=== PATIENT | female | born 1995 | race Caucasian/White ===

== ENCOUNTER 2021-08-22 08:23 | Outpatient (CLI) | payer OTHER, MEDICAID, SELFPAY ==
--- NOTE | 2021-08-22 08:35 | US_ITS ---
WS: [id number] OBSTETRICAL ULTRASOUND COMPLETE HISTORY: ANATOMY COMPARISON: 06/21/2021 Single intrauterine gestation in variable presentation. Cervix is Closed and normal length. Cervical length is 4.9 cm. Normal amount of amniotic fluid surrounds the fetus. Placenta: Anterior, no previa or abruption. Placenta grade 0 Heart: 153 BPM. Four chambers are identified. RIGHT and LEFT outflow tracts are unremarkable. Anatomy: Intracranial structures and spine are normal. kidneys, stomach and urinary bladd er are unremarkable. Abdominal wall, three-vessel cord and cord insertion site are normal. 4 extremities are present. profile: Limited. Gender: Not imaged. measurements: BPD = 4.8 cm = 20w4d HC = 18.7 cm = 21w0d AC = 15.6 cm = 20w5d FL = 3.5 cm = 21w0d EFW: 382 g. Biometry is internally concordant. AGA by ultrasound: 20w6d ZORAN by ultrasound: 01/03/2022 US/US OB >= 14 weeks fetus [id number] IMPRESSION: 1. Single intrauterine gestation of 20w6d with an ZORAN of 01/03/2022. Appropria te growth since the prior ultrasound. 2. anatomy survey demonstrates no abnormality. Limited evaluation of the profile.
== END 2021-08-22 08:24 | disposition home or self-care (01) ==
LOC: RAD 08:30
PROVIDERS: PCP Family Medicine; Visit Provider Family Medicine
DX: Z34.82 Encounter for supervision of other normal pregnancy, second trimester; Z3A.20 20 weeks gestation of pregnancy
CPT/HCPCS: 76805

== ENCOUNTER 2021-12-12 06:06 | Outpatient (CLI) | payer OTHER, MEDICAID, SELFPAY ==
--- NOTE | 2021-12-12 06:13 | US_ITS ---
WS: [id number] BIOPHYSICAL PROFILE AND LIMITED OB. HISTORY: GESTATIONAL DIABETES COMPARISON: 08/22/2021, 06/21/2021 Presentation: Vertex. Cervix: Closed. The entire length of the service is obscured by the head. Placenta: Anterior, no previa or abruption. Grade: 1 HEART: FHR of 153BPM. measurements: BPD = 9.7 cm = 39w5d HC = 31.0 cm = 34w5d AC = 33.3 cm = 37w1d FL = 7.3 cm = 37w3d TK: 9.3 cm, between the fifth and 50th percentiles. Largest vertical pocket 5.2 cm. EFW: 3160g; 76 %. AGA by ultrasound: 37w2d ZORAN by ultrasound: 12/31/2021 Estimated date of delivery is concordant with the first trimester ultrasound. Today's biometry measur ements are not concordant. The BPD is measuring 5 weeks larger than the head circumference and 2 week s greater than the abdominal circumference and femur length. Measurements are very difficult to accur ately obtain at this late gestational age. Biophysical profile: Parameters are as follows: Breathin Movement: 2 Tone: 2 Fluid volume: 2 US/US OB lmt w/ BPP wo NST IMPRESSION: 1. Biophysical profile score: 8/8. 2. Single intrauterine gestation of 37w2d and 12/31/2021. Appropriate growth si nce the first trimester ultrasound. 3. measurements are probably inaccurate due to late gestational age and d ifficulty obtaining measurements at locations. The BPD is measuring larger than the remaining measurements. 4. Normal amniotic fluid index.
[2021-12-12 07:31] VITALS: BMI 37.3
== END 2021-12-12 06:07 | disposition home or self-care (01) ==
LOC: RAD 06:08
PROVIDERS: PCP Family Medicine; Visit Provider Family Medicine
DX: O24.419 Gestational diabetes mellitus in pregnancy, unspecified control (principal); Z3A.00 Weeks of gestation of pregnancy not specified
CPT/HCPCS: 59025; 76815; 76819

== ENCOUNTER 2021-12-12 07:10 | Outpatient (CLI) | payer OTHER, MEDICAID, SELFPAY ==
[2021-12-12 07:28] VITALS: BP 122/63; PULSE 79
[2021-12-12 07:45] VITALS: BP 119/60; PULSE 79
[2021-12-12 07:58] VITALS: BP 119/61; PULSE 91
[2021-12-12 08:00] VITALS: BP 119/60; PULSE 79; RESP 18
[2021-12-12 08:22] VITALS: BMI 37.3
== END 2021-12-12 08:05 | disposition home or self-care (01) ==
LOC: OPOB 07:12 → OBGYN 07:12
PROVIDERS: PCP Family Medicine; Visit Provider Family Medicine
DX: O24.419 Gestational diabetes mellitus in pregnancy, unspecified control (principal); Z3A.00 Weeks of gestation of pregnancy not specified
CPT/HCPCS: 59025

== ENCOUNTER 2021-12-19 08:25 | Outpatient (CLI) | payer OTHER, MEDICAID, SELFPAY ==
--- NOTE | 2021-12-19 08:32 | US_ITS ---
WS: [id number] ULTRASOUND OB LIMITED TECHNIQUE: Limited ultrasound examination of the fetus. CLINICAL INFORMATION: GESTATIONAL DIABETES COMPARISON: December 12, 2021 FINDINGS: Cervix measures 4.2 cm Single interuterine gestation. Placental location is anterior. Placenta grade: 1 heart rate 144 BPM. Normal TK 12.3 cm Biophysical profile 8 out of 8. breathin movement: 2 tone: 2 Amniotic fluid: 2 US/US OB F/U w BPP wo NST IMPRESSION: 1. Normal biophysical profile 8 out of 8 2. Normal TK for gestational age just below the median.
== END 2021-12-19 08:26 | disposition home or self-care (01) ==
PROVIDERS: PCP Family Medicine; Visit Provider Family Medicine
DX: O24.419 Gestational diabetes mellitus in pregnancy, unspecified control (principal); Z3A.00 Weeks of gestation of pregnancy not specified
CPT/HCPCS: 76816; 76819

== ENCOUNTER 2021-12-19 09:10 | Outpatient (CLI) | payer OTHER, MEDICAID, SELFPAY ==
[2021-12-19 09:17] VITALS: BP 132/79; PULSE 100; TEMP 36.2
[2021-12-19 09:22] VITALS: RESP 17; TEMP 36.2; BMI 37.0
[2021-12-19 09:38] VITALS: BP 123/83; PULSE 94
[2021-12-19 09:48] VITALS: BP 123/83; PULSE 94
== END 2021-12-19 09:48 | disposition home or self-care (01) ==
LOC: OPOB 09:11 → OBGYN 09:12
PROVIDERS: PCP Family Medicine; Visit Provider Family Medicine
DX: O24.419 Gestational diabetes mellitus in pregnancy, unspecified control (principal); Z3A.00 Weeks of gestation of pregnancy not specified
CPT/HCPCS: 59025; 99211

== ENCOUNTER 2021-12-26 08:27 | Outpatient (CLI) | payer OTHER, MEDICAID, SELFPAY ==
--- NOTE | 2021-12-26 08:54 | US_ITS ---
WS: [id number] BIOPHYSICAL PROFILE AMNIOTIC FLUID HISTORY: GESTATIONAL DIABETES COMPARISON: 12/19/2021 Cardiac activity: 153 bpm. Cervix: closed. 3.1 cm. Placenta: Anterior, no previa or abruption. Placenta grade: 2 Parameters are as follows: Breathin Movement: 2 Tone: 0 Fluid volume: 2 Amniotic fluid index: 8.3 cm. Largest vertical pocket 3.0 cm. US/US OB F/U w BPP wo NST IMPRESSION: 1. Biophysical profile score: 6/8. Although the baby was active during this exa mination tone was not evident. 2. Low normal amniotic fluid index. The internal fluid index has decreased sinc e the prior examination from 12.4 cm to 8.3 cm. Visually the amniotic fluid vol ume appears decreased also.
== END 2021-12-26 08:28 | disposition home or self-care (01) ==
LOC: RAD 08:31
PROVIDERS: PCP Family Medicine; Visit Provider Family Medicine
DX: O24.419 Gestational diabetes mellitus in pregnancy, unspecified control (principal); Z3A.00 Weeks of gestation of pregnancy not specified
CPT/HCPCS: 76816; 76819

== ENCOUNTER 2021-12-26 10:00 | Outpatient (CLI) | payer OTHER, MEDICAID, SELFPAY ==
[2021-12-26 10:12] VITALS: TEMP 36.5
[2021-12-26 10:13] VITALS: BP 124/90; PULSE 86
[2021-12-26 10:29] VITALS: BP 143/89; PULSE 89; RESP 18; BMI 37.9
[2021-12-26 10:43] VITALS: BP 138/82; PULSE 79
[2021-12-26 10:58] VITALS: BP 154/97; PULSE 82
[2021-12-26 11:14] VITALS: BP 145/86; PULSE 80
== END 2021-12-26 11:20 | disposition home or self-care (01) ==
LOC: OPOB 10:04 → OBGYN 10:04
PROVIDERS: PCP Family Medicine; Visit Provider Family Medicine
DX: O24.419 Gestational diabetes mellitus in pregnancy, unspecified control (principal); Z3A.00 Weeks of gestation of pregnancy not specified
CPT/HCPCS: 59025

== ENCOUNTER 2021-12-27 08:50 | Outpatient (CLI) | payer OTHER, MEDICAID, SELFPAY ==
[2021-12-27 09:05] VITALS: BP 139/86; PULSE 94; TEMP 36.7
[2021-12-27 09:55] VITALS: BMI 38.1
[2021-12-27 10:02] VITALS: BP 133/84; PULSE 91
--- NOTE | 2021-12-27 10:06 | US_ITS ---
WS: [id number] ULTRASOUND OB LIMITED TECHNIQUE: Limited ultrasound examination of the fetus. CLINICAL INFORMATION: GDM COMPARISON: December 26, 2021 FINDINGS: Closed cervix measures 5.2 cm Single interuterine gestation. Placental location is anterior. Placenta grade: 2 heart rate 144 BPM. TK measures 19.7 cm greater than the median and less than the 95th percentile for gestational age. A mniotic fluid volume was probably underestimated on December 26, 2021. Amniotic fluid pockets are better v isualized today due to positioning. Biophysical profile 8 out of 8. breathin movement: 2 tone: 2 Amniotic fluid: 2 US/US OB BPP wo NST [id number] IMPRESSION: 1. NORMAL BIOPHYSICAL PROFILE 8 OUT OF 8 TODAY. 2. TK 19.7 CM TODAY NORMAL FOR GESTATIONAL AGE
== END 2021-12-27 11:38 | disposition home or self-care (01) ==
LOC: OPOB 08:54 → OBGYN 08:56
PROVIDERS: PCP Family Medicine; Visit Provider Family Medicine
DX: O24.419 Gestational diabetes mellitus in pregnancy, unspecified control (principal); Z3A.00 Weeks of gestation of pregnancy not specified
CPT/HCPCS: 76819

== ENCOUNTER 2021-12-29 05:05 | Inpatient (IN) | payer OTHER, MEDICAID, SELFPAY ==
[2021-12-29] VITALS (32 sets, daily range): BP systolic 110–151; BP diastolic 56–88; PULSE 65–92; RESP 14–18; TEMP 36.3–37.2; O2SAT 98–100; BMI 37.9
[2021-12-29] MEDS: lactated ringers 1,000 ML 999 ML IV (06:13)
[2021-12-29 06:40] LABS: Glucose Point of Care 97 mg/dL (70-110)
--- NOTE | 2021-12-29 06:40 | PM.HP ---
Providers/Chief Complaint Admitting Physician: Juvenal Yepez MD Primary Care Provider: Juvenal Yepez MD Chief Complaint: delivery and tubal History of Present Illness Nixon Gilmore is a 26 year old G3, P2 at 38.5 weeks gestation by LMP consistent with 11-week ultrasound. Her is complicated by history of heavy bleeding with periods requiring transfusion, borderline hypertension, history of section x2, gestational diabetes diet-controlled, borderline biophysical profile. The patient presents to labor and delivery for a scheduled repeat low-transverse section with bilateral tubal ligation. The initial plan was to have a section next week, however she had a biophysical profile of 6 out of 8 on Saturday with an TK of 8. She had a more reassuring BPP on Saturday, however her report is that the tech had to highly stimulate the infant to get it to move at all. Her blood pressure has also been starting to elevate in the upper 130s over 80s to 140s over 90s. With all of these findings and gestational diabetes and being very close to term, it was felt best to proceed with a repeat low-transverse section today to decrease risk for an adverse event. The patient feels well today. She denies any chest pains, shortness of breath, nausea, vomiting, fever, diarrhea, constipation, dysuria, leakage of fluid, vaginal bleeding. Medications/Allergies Home Medications Medication Instructions Recorded Confirmed Last Taken Type 1 12/27/21 Unknown History Allergies Allergy/AdvReac Type Severity Reaction Status Date / Time clindamycin Allergy Severe ALGY-Hives Verified 12/27/21 10:18 PFSH Acute PFSH: Medical History (Updated 12/29/21 @ 06:47 by Juvenal Yepez MD) History of blood transfusion Due to heavy periods at age 12 with hemoglobin of 4. Pilonidal cyst Surgical History (Updated 12/29/21 @ 06:47 by Juvenal Yepez MD) History of section History of cholecystectomy [place] teeth removed Family History (Updated 12/29/21 @ 06:48 by Juvenal Yepez MD) Father Diabetes Mother Hypertension Social History (Updated 12/29/21 @ 06:48 by Juvenal Yepez MD) Smoking and tobacco status: never smoked Alcohol intake: never Substance/Drug Use: never Vitals/I&O/Wt Last Vital Signs Temp 97.3 F L 12/29/21 05:21 Pulse 83 12/29/21 05:53 Resp 18 12/29/21 05:13 BP 133/88 12/29/21 05:53 Physical Exam Narrative: General: Alert and oriented x3 Eyes: Pupils equal round and reactive to light and accommodation Mouth: Mucous membranes moist, pharynx non-erythematous Cardiac: Regular rate and rhythm without murmurs Lungs: Clear to auscultation bilaterally without wheezes, crackles or rhonchi Abdomen: Soft, non-tender, fundus consistent with gestational age Extremities: Trace edema in the bilateral lower extremities Data : 12/29/21 06:30 A&P Assessment and plan (1) Gestational diabetes: Status: Acute (2) Borderline hypertension: Status: Acute (3) Intrauterine : Status: Acute Plan The patient is doing well at this time. Her initial blood sugar is 97. heart tones are in the mid 140s with moderate variability good accelerations. There is a category 1 tracing. Blood pressure is 151/81. We will proceed with repeat low-transverse section with bilateral tubal ligation. All questions were answered. The patient and her are in agreement with current plan of care. Attestations Medical Necessity Statement*: The patient will be here for greater than 2 midnights due to routine intrapartum and management of labor and delivery. Coding Level of Care Code Acute Medical Receptionist for Chg Fwd Diagnoses Gestational diabetes O24.419 Borderline hypertension R03.0 Intrauterine Z34.90
[2021-12-29 06:44] LABS: Basophils % 0.2 %; Eosinophils % 0.6 %; Hematocrit 37.4 % (37.0-47.0); Hemoglobin 12.9 g/dL (11.5-15.3); Lymphocytes # 1.2 10^3/uL (0.8-4.8); Lymphocytes % 18.7 %; Mean Corpuscular HGB Conc 34.5 g/dL (30.0-36.0); Mean Corpuscular Hemoglobin 30.4 pg (28.0-34.0); Mean Corpuscular Volume 88.2 fl (81-99); Mean Platelet Volume 11.8 fL (7.4-10.4); Monocytes # 0.6 10^3/uL (0.2-0.9); Monocytes % 9.6 %; Neutrophils # 4.55 10^3/uL (1.8-7.7); Neutrophils % 70.1 %; Nucleated Red Blood Cells % 0 %; Platelet Count 168 10^3/cmm (130-400); Red Blood Count 4.24 10^6/uL (4.1-5.3); Red Cell Distribution Width 13.8 % (12.1-15.1); White Blood Count 6.5 10^3/uL (4.0-10.0)
--- NOTE | 2021-12-29 06:53 | P.ANESASSM_ITS ---
Pre-Anesthetic Assessment Height/Weight: Height 1.65 m Weight 103.419 kg Temp Pulse Resp BP 98.1 F 79 18 151/81 12/29/21 06:46 12/29/21 06:48 12/29/21 05:13 12/29/21 06:48 Preop Diagnosis: labor Operation Date: 01/03/22 07:00 Proposed Procedures p Section Repeat With Tubal /[id number](Not Applicable) - Juvenal Yepez MD Familial anesthetic complications: none Was Beta Piter taken within 24 hours: N/A Was Clonidine taken within 24 hours: N/A Last intake: Intake Last Liquid Date 12/28/21 Last Liquid Time 23:00 Last Solid Date 12/28/21 Last Solid Time 23:00 Last Intake: 23:00 Social No alcohol and No tobacco Exam alert, oriented x 3, clear to auscultation bilaterally and regular rate & rhythm Airway Submandibular: within normal limits Cervical ROM: within normal limits Mallampati: Class I Dentition: full Pulmonary None reported CV/HEM None reported None reported Hepatic None reported GI Gastroesophageal Reflux Disease () Metabolic Diabetes Mellitus (gestational) Musc/skel None reported Neuropsych None reported Anesthetic Plan ASA status: 2 Anesthesia: Regional (specify below) (SAB) Medications/Allergies Home Medications Medication Instructions Recorded Confirmed Last Taken Type 1 12/27/21 Unknown History Allergies Allergy/AdvReac Type Severity Reaction Status Date / Time clindamycin Allergy Severe ALGY-Hives Verified 12/27/21 10:18 [facility] Anesthesia Medical History (Updated 12/29/21 @ 06:47 by Juvenal Yepez MD) History of blood transfusion Due to heavy periods at age 12 with hemoglobin of 4. Pilonidal cyst Surgical History (Updated 12/29/21 @ 06:47 by Juvenal Yepez MD) History of section History of cholecystectomy [place] teeth removed Family History (Updated 12/29/21 @ 06:48 by Juvenal Yepez MD) Father Diabetes Mother Hypertension Social History (Updated 12/29/21 @ 06:48 by Juvenal Yepez MD) Smoking and tobacco status: never smoked Alcohol intake: never Substance/Drug Use: never Female Reproductive History : 3 Data Anesthesia : 12/29/21 06:30 Short CBC 12/29/21 Range/Units 06:30 WBC 6.5 (4.0-10.0) 10^3/uL Hgb 12.9 (11.5-15.3) g/dL Hct 37.4 (37.0-47.0) % MCV 88.2 (81-99) fl Plt Count 168 (130-400) 10^3/cmm Neut % (Auto) 70.1 % Neut # (Auto) 4.55 (1.8-7.7) 10^3/uL Cardiac Studies: No Data to Display
[2021-12-29] MEDS: famotidine 20 mg/2 mL INJ IVP (06:54)
[2021-12-29] MEDS: citric acid-sodium citrate 30 mL UDC PO (06:54)
[2021-12-29] MEDS: metoclopramide 5 mg/mL SDV 2 mL 10 MG IVP (06:55)
--- NOTE | 2021-12-29 09:10 | PM.OP ---
Operative Report Date of procedure: December 29, 2021 Pre-op diagnosis: 1. Intrauterine at 38.5 weeks gestation 2. History of heavy bleeding requiring transfusion 3. Borderline hypertension 4. Gestational diabetes diet-controlled 5. Borderline biophysical profile 6. History of section x2 7. Requesting bilateral tubal ligation Post-op diagnosis: 1. Intrauterine status post repeat low transverse section with bilateral tubal ligation at 38.5 weeks gestation 2. History of heavy bleeding requiring transfusion 3. Borderline hypertension 4. Gestational diabetes diet-controlled 5. Borderline biophysical profile 6. Delivery of healthy infant male weighing 10 pounds 6 ounces with Apgars of 8 and 9 Procedure done: Repeat low-transverse section with bilateral tubal ligation Surgeon: Juvenal Yepez MD Estimated blood loss (mL): 400 Complications: None Findings: 1. Intact placenta with central umbilical cord insertion site 2. Delivery of healthy infant male weighing 10 pounds 6 ounces with Apgars of 8 and 9 Brief History: Nixon Gilmore is a 26 year old G3 now P3 status post repeat low-transverse section with bilateral tubal ligation at 38.5 weeks gestation by LMP consistent with 11-week ultrasound.? Her was complicated by history of heavy bleeding with periods requiring transfusion, borderline hypertension, history of section x2, gestational diabetes diet-controlled, borderline biophysical profile. The patient presented to labor and delivery for a scheduled repeat low-transverse section with bilateral tubal ligation.? The initial plan was to have a section next week, however she had a biophysical profile of 6 out of 8 on Saturday with an TK of 8.? She had a more reassuring BPP on Saturday, however her report is that the tech had to highly stimulate the to get it to move at all.? Her blood pressure has also been starting to elevate in the upper 130s over 80s to 140s over 90s.? With all of these findings and gestational diabetes and being very close to term, it was felt best to proceed with a repeat low-transverse section today to decrease risk for an adverse event. Procedure: After informed consent was obtained, the patient was taken to the operating room and a spinal was placed and adequate anesthesia was obtained. The patient was prepped and draped in a normal sterile fashion in the dorsal supine position.? Adequate anesthesia was confirmed. At 7:32 AM on 12/29/2021 a Pfannenstiel skin incision was made and carried through to the underlying layer of fascia using a scalpel.? The fascial incision was then extended laterally using curved Mayos.? The fascia was then grasped with Mona clamps and the underlying rectus muscles were dissected off taking care to avoid injury to the underlying tissues.? The peritoneum was entered bluntly with one digit.? It was then bluntly.? The bladder blade was placed and the vesicouterine peritoneum was well below the lower uterine segment of the uterus.? The uterine incision was made in the lower uterine segment in a transverse fashion with the scalpel at 7:39 AM.? The amniotic membrane was entered bluntly and a moderate amount of clear fluid was noted.? Uterine pressure was placed and the infant's head delivered without complication at 7:40 AM on 12/30/2021.? There was no nuchal cord.? The mouth and nose were suctioned.? The rest of the delivered without difficulty.? The infant took a breath immediately upon delivery.? The cord was clamped and cut and the infant was handed to the awaiting pediatric nurses.? The placenta was then manually expressed.? The uterus was exteriorized from the abdomen.? A wet lap was used to clear the uterus of clots and debris.? The bladder blade was reinserted and the uterine incision was closed using 0 chromic in a running locking fashion.? The uterus was noted to be firm.? A second layer of the same suture was used in the same manner.? Excellent hemostasis was obtained. The bilateral fallopian tubes were located. Babcocks were used to raise the fallopian tube segment and a window was burned underneath the right fallopian tube. 0 chromic was used tie off a section of the tube on each side. A tube segment was removed using Metzenbaums. The end of the fallopian tube was cauterized on each side. A modified [place] technique was used. The fallopian tube segment was sent to pathology. This was repeated on the left side. Excellent hemostasis was noted. Next the posterior cul-de-sac was inspected and was cleared of any blood. The gutters were cleared of any further clots and debris and the uterine incision was again inspected and hemostasis was noted.? The subfascial tissue was inspected for hemostasis and the peritoneum was re-approximated using 2-0 plain in a running fashion.? The fascia was then re-approximated using 0 Vicryl in a running fashion.? The subcutaneous tissue was inspected for hemostasis.? Mike's fascia was then re-approximated using 3-0 plain in a running fashion.? Good hemostasis was noted.? The subcutaneous tissue was then re-approximated using a subcuticular stitch.? The patient tolerated the procedure well and was recovered in stable condition.? Estimated blood loss was 400 mL. Urine in the Perez catheter was clear. The patient was taken to recovery in good condition.
[2021-12-29] MEDS: ketorolac 30 mg/mL INJ IVP ×2 (15:06→21:29)
[2021-12-29] MEDS: dextrose 5%-lactated ringers 1,000 ML 125 ML IV (17:07)
[2021-12-29] MEDS: docusate sodium 100 mg Capsule PO (17:07)
[2021-12-29] MEDS: ferrous sulfate EC 325 mg Tablet PO (17:07)
[2021-12-29 22:00] LABS: Hematocrit 31.9 % (37.0-47.0); Mean Corpuscular HGB Conc 34.5 g/dL (30.0-36.0); Mean Corpuscular Hemoglobin 30.6 pg (28.0-34.0); Mean Corpuscular Volume 88.6 fl (81-99); Mean Platelet Volume 11.6 fL (7.4-10.4); Platelet Count 149 10^3/cmm (130-400); Red Cell Distribution Width 13.9 % (12.1-15.1); White Blood Count 7.4 10^3/uL (4.0-10.0)
[2021-12-30 05:00] VITALS: BP 143/92; PULSE 90; RESP 14; O2SAT 98
[2021-12-30 05:20] VITALS: RESP 14; O2SAT 98
[2021-12-30] MEDS: oxyCODONE-APAP 5-325 mg Tablet PO ×2 (05:20→13:54)
[2021-12-30] MEDS: docusate sodium 100 mg Capsule PO (09:24)
[2021-12-30] MEDS: prenatal vitamin Capsule 1 CAP PO (09:24)
[2021-12-30] MEDS: ferrous sulfate EC 325 mg Tablet PO (09:24)
[2021-12-30] MEDS: ibuprofen 800 mg tablet PO ×2 (10:29→13:54)
--- NOTE | 2021-12-30 13:02 | PM.DCS ---
Discharge Providers Date of Admission: 12/29/21 05:05 Date of Discharge: December 30, 2021 Attending Provider at Admission: Juvenal Yepez MD Attending Provider at Discharge: Juvenal Yepez MD Primary Care Provider: Juvenal Yepez MD Diagnoses at Discharge Discharge Diagnosis (1) Gestational diabetes: Status: Acute (2) Borderline hypertension: Status: Acute (3) Intrauterine : Status: Acute (4) delivery delivered: Status: Acute Other Information Additional DC diagnoses/information: 1.? Intrauterine status post repeat low transverse section with bilateral tubal ligation at 38.5 weeks? gestation 2.? History of heavy bleeding requiring transfusion 3.? Borderline hypertension 4.? Gestational diabetes diet-controlled 5.? Borderline biophysical profile 6.? Delivery of healthy infant male weighing 10 pounds 6 ounces with Apgars of 8 and 9 Reason for Visit Reason for Visit: delivery and tubal Brief History: Nixon Gilmore is a 26 year old G3 now P3 status post repeat low-transverse section with bilateral tubal ligation at 38.5 weeks gestation by LMP consistent with 11-week ultrasound.? Her was complicated by history of heavy bleeding with periods requiring transfusion, borderline hypertension, history of section x2, gestational diabetes diet-controlled, borderline biophysical profile. The patient presented to labor and delivery for a scheduled repeat low-transverse section with bilateral tubal ligation.? The initial plan was to have a section next week, however she had a biophysical profile of 6 out of 8 on Saturday with an TK of 8.? She had a more reassuring BPP on Saturday, however her report is that the tech had to highly stimulate the infant to get it to move at all.? Her blood pressure has also been starting to elevate in the upper 130s over 80s to 140s over 90s.? With all of these findings and gestational diabetes and being very close to term, it was felt best to proceed with a repeat low-transverse section today to decrease risk for an adverse event. Hospital Course Hospital Course The patient had a repeat low-transverse section with bilateral tubal ligation and has had no complications afterwards. Her bleeding is decreasing well. She is ambulating, voiding, passing gas and tolerating food by mouth. Her pain is currently well controlled. The patient is feeling well at this time and may be discharged home. We will plan to follow-up with her in clinic over the next 1 to 2 weeks. Sooner if needed. All questions were answered. Routine post care instructions were discussed. The patient and her are in agreement with current plan of care. Physical Exam Narrative: General: Alert and oriented x3 Cardiac: Regular rate and rhythm without murmurs Lungs: Clear to auscultation bilaterally without wheezes, crackles or rhonchi Abdomen: Soft, mild tenderness over uterus. The uterus is firm and 2 cm below the umbilicus. Incision is clean and dry without signs of infection or dehiscence. Extremities: Trace edema in the bilateral lower extremities Urinary Catheter Management: Perez: Cath Placed During This Visit: yes, but has since been removed by the nurse Reason for Continuing Indwelling Catheter: Decision to DC Catheter Urinary Catheter Date of Insertion: 12/29/21 Urinary Catheter Time of Insertion: 07:15 Date Urinary Catheter Removed: 12/30/21 Time Urinary Catheter Discontinued: 00:40 Discharge Data Studies Completed and Pending Pending at discharge Category Date Time Status Pathology: Surgical [PTH] Routine Pth 12/29/21 09:12 Ordered Laboratory Results WBC 7.4 10^3/uL (4.0-10.0) 12/29/21 21:40 RBC 3.60 10^6/uL (4.1-5.3) L 12/29/21 21:40 Hgb 11.0 g/dL (11.5-15.3) L 12/29/21 21:40 Hct 31.9 % (37.0-47.0) L 12/29/21 21:40 MCV 88.6 fl (81-99) 12/29/21 21:40 MCH 30.6 pg (28.0-34.0) 12/29/21 21:40 MCHC 34.5 g/dL (30.0-36.0) 12/29/21 21:40 RDW 13.9 % (12.1-15.1) 12/29/21 21:40 Plt Count 149 10^3/cmm (130-400) 12/29/21 21:40 MPV 11.6 fL (7.4-10.4) H 12/29/21 21:40 Neut % (Auto) 70.1 % 12/29/21 06:30 Lymph % (Auto) 18.7 % 12/29/21 06:30 [place] % (Auto) 9.6 % 12/29/21 06:30 Eos % (Auto) 0.6 % 12/29/21 06:30 Baso % (Auto) 0.2 % 12/29/21 06:30 Neut # (Auto) 4.55 10^3/uL (1.8-7.7) 12/29/21 06:30 Lymph # (Auto) 1.2 10^3/uL (0.8-4.8) 12/29/21 06:30 [place] # (Auto) 0.6 10^3/uL (0.2-0.9) 12/29/21 06:30 Eos # (Auto) 0.0 10^3/uL (0.0-0.8) 12/29/21 06:30 Baso # (Auto) 0.0 10^3/uL (0.0-0.1) 12/29/21 06:30 Nucleated RBC % (auto) 0 % 12/29/21 06:30 Nucleated RBCs # 0.0 /100WBC 12/29/21 06:30 POC Glucose 97 mg/dL (70-110) 12/29/21 06:37 Vitals Last Vital Signs Temp 98.1 F 12/29/21 17:13 Pulse 90 12/30/21 05:00 Resp 14 12/30/21 05:20 BP 143/92 12/30/21 05:00 Pulse Ox 98 12/30/21 05:20 Discharge Plan Discharge Condition: Good Prescriptions: New oxycodone-acetaminophen 5-325 mg Tablet 1 tab PO Q6H PRN (Reason: Moderate To Severe Pain) Qty: 30 0RF ferrous sulfate 325 mg (65 mg iron) Tablet,Delayed Release (Dr/Ec) 325 mg PO BIDWM Qty: 30 0RF ibuprofen 800 mg Tablet 800 mg PO TID Qty: 60 0RF Continued 1 0RF Discharge Orders: Discharge Order (Routine); Ordered 12/30/21 Ordered By: Juvenal Yepez Referrals: Juvenal Yepez MD [Primary Care Provider] - 2 weeks Discharge Activity: Limit activity as instructed Patient Instructions: Opioid Safety Activity Restrictions/Additional Instructions: Do not lift anything heavier than your infant in the car seat for the first 3 weeks, then gradually increase. Nothing per vagina for 6 weeks. If you have any concern for infection or dehiscence of your wound, please contact Dr. Yepez right away. Discharge Attestations Time Spent in Discharge Care*: greater than 30 min Quality Metrics Clinical Quality Measures [ No reported AMI, CVA or VTE this stay] Coding Level of Care Code Acute Chg FW ND note Diagnoses Gestational diabetes O24.419 Borderline hypertension R03.0 Intrauterine Z34.90 delivery delivered O82
[2021-12-30 13:54] VITALS: RESP 16
[2021-12-30 15:18] VITALS: BP 129/77; PULSE 74; RESP 16; TEMP 36.3; O2SAT 98
[2021-12-30 16:00] VITALS: BP 129/77; PULSE 74; RESP 16; TEMP 36.3; O2SAT 98
== END 2021-12-30 16:00 | disposition home or self-care (01) | DRG 785 ==
PROVIDERS: Admitting Provider Family Medicine; PCP Family Medicine; Visit Provider Family Medicine
DX: O24.420 Gestational diabetes mellitus in childbirth, diet controlled (principal); O34.211 Maternal care for low transverse scar from previous cesarean delivery; Z3A.38 38 weeks gestation of pregnancy; Z37.0 Single live birth; O16.4 Unspecified maternal hypertension, complicating childbirth
CPT/HCPCS: 36415; 36416; 51702; 59025; 59409; 82962; 85025; 85027; 88302; 96374; 96376; J0690; J1200; J1885; J2274; J2405; J2765; J3490; J7030

== ENCOUNTER 2021-12-29 11:31 | Inpatient (IN) | payer OTHER, MEDICAID, SELFPAY ==
--- NOTE | 2021-12-29 13:12 | ANE.PACU2 ---
Inpatient post-anesthesia follow up: Airway intact: Yes Vital signs: Temperature Pulse Rate Respiratory Rate Blood Pressure Pulse Oximetry Oxygen Delivery Me thod Oxygen Flow Rate Fraction of Inspir ed Oxygen Hydration adequate: Yes Nausea and vomiting: No Pain level: 2 Mental status: Baseline
== END 2022-01-18 07:41 | disposition home or self-care (01) | DRG 785 ==
LOC: MS 2A 01-18 11:33
PROVIDERS: Admitting Provider Family Medicine; PCP Family Medicine; Visit Provider Family Medicine
PROC: 10D00Z1 Extraction of Products of Conception, Low, Open Approach (ICD-10-PCS; CPT 59514; principal; 2021-12-29 07:00)
DX: O24.420 Gestational diabetes mellitus in childbirth, diet controlled (principal); Z3A.38 38 weeks gestation of pregnancy; Z37.0 Single live birth; O34.211 Maternal care for low transverse scar from previous cesarean delivery
CPT/HCPCS: 51702; J7030

== ENCOUNTER → 2022-02-21 11:00 | Outpatient (BNVA) | payer OTHER, MEDICAID, SELFPAY | PROVIDERS: PCP Family Medicine; Visit Provider Family Medicine | DX: O24.419 Gestational diabetes mellitus in pregnancy, unspecified control (principal); Z3A.00 Weeks of gestation of pregnancy not specified | CPT/HCPCS: 82950 ==

== ENCOUNTER → 2022-07-31 08:49 | Outpatient (BNVA) | payer OTHER, MEDICAID, SELFPAY | PROVIDERS: PCP Family Medicine; Visit Provider Family Medicine | DX: Z34.90 Encounter for supervision of normal pregnancy, unspecified, unspecified trimester (principal) | CPT/HCPCS: 85025 ==

== ENCOUNTER → 2023-07-30 09:25 | Outpatient (BNVA) | payer OTHER, MEDICAID, SELFPAY | PROVIDERS: PCP Family Medicine; Visit Provider Family Medicine | DX: Z51.81 Encounter for therapeutic drug level monitoring (principal); Z13.220 Encounter for screening for lipoid disorders; F41.9 Anxiety disorder, unspecified; Z79.899 Other long term (current) drug therapy | CPT/HCPCS: 80053; 80061; 84439; 84443; 85025 ==

== ENCOUNTER → 2024-01-29 15:19 | Outpatient (BNVA) | payer OTHER, MEDICAID, SELFPAY | PROVIDERS: PCP Family Medicine; Visit Provider Clinical Nurse Specialist Adult Health | DX: J02.0 Streptococcal pharyngitis (principal) | CPT/HCPCS: 87880 ==

== ENCOUNTER → 2024-05-06 11:32 | Outpatient (BNVA) | payer OTHER, MEDICAID, SELFPAY | PROVIDERS: PCP Family Medicine; Visit Provider Family Medicine | DX: Z00.00 Encounter for general adult medical examination without abnormal findings (principal); Z86.32 Personal history of gestational diabetes | CPT/HCPCS: 83036; 87624 ==

== ENCOUNTER → 2024-09-07 15:17 | Outpatient (BNVA) | payer OTHER, MEDICAID, SELFPAY | PROVIDERS: PCP Family Medicine; Visit Provider Family Medicine | DX: N92.1 Excessive and frequent menstruation with irregular cycle (principal); Z51.81 Encounter for therapeutic drug level monitoring | CPT/HCPCS: 84439; 84443; 85025 ==

== ENCOUNTER → 2025-06-17 09:21 | Outpatient (BNVA) | payer OTHER, SELFPAY | PROVIDERS: PCP Family Medicine; Visit Provider Family Medicine | DX: Z51.81 Encounter for therapeutic drug level monitoring (principal); Z13.6 Encounter for screening for cardiovascular disorders; Z00.00 Encounter for general adult medical examination without abnormal findings; E55.9 Vitamin D deficiency, unspecified; R53.81 Other malaise; R53.83 Other fatigue | CPT/HCPCS: 80053; 80061; 82306; 84439; 84443; 85025 ==